=== PATIENT | female | born 1950 | race Caucasian/White ===

== ENCOUNTER → 2019-10-22 | Day surgery (SDC) | payer MEDICARE ==
[2019-10-22 12:41] VITALS: BP 129/84; PULSE 91; RESP 18; TEMP 98.3
--- NOTE | 2019-10-22 18:13 | MM ---
EXAMINATION TYPE: MG stereo VAD BX RT DATE OF EXAM: 10/22/2019 COMPARISON: Outside mammogram 10/14/2019 CLINICAL HISTORY: Abnormal mammogram, calcifications right breast TECHNIQUE: Stereotactic guided core biopsy of right breast. FINDINGS: The procedure of stereotactic guided core biopsy was explained to the patient. Benefits, a lternatives, and risks were discussed. An informed consent was then obtained. Timeout was performed. The shortness pathway for biopsy was chosen. Shortness pathway was lateral approach. Procedure was t argeted by radiology. Procedure was performed by radiology. A vacuum assisted biopsy device was used to obtain 6 core samples. The patient tolerated the procedure well without any immediate complication. The patient was kept in the radiology department for short stay after the procedure for postprocedure mammogram. Discharge instructions were discussed with the patient. The patient was discharged to home in stable conditio n. Patient tolerated procedure well. Specimen: Targeted calcifications are identified in specimen mammogram. Postprocedure mammogram: Post biopsy mammogram shows the clip to appear in satisfactory position rela tive to the targeted area of concern on the preprocedure images. IMPRESSION: 1. Successful stereotactic core biopsy right breast calcifications. Recommendations: 1. Recommendations are pending pathology.
== END ==
LOC: RADMAMWWP 12:03
PROVIDERS: ATTEND Family Medicine
DX: N60.11 Diffuse cystic mastopathy of right breast (principal); R92.0 Mammographic microcalcification found on diagnostic imaging of breast
CPT/HCPCS: 88305; 19081; A4648; J2001

== ENCOUNTER → 2020-04-27 | Outpatient (CLI) | payer MEDICARE ==
--- NOTE | 2020-04-27 13:45 | MM ---
Reason for exam: follow-up at short interval from prior study. Last mammogram was performed 7 months ago. History: Family history of breast cancer in sister at age 54. Benign MG stereo VAD BX RT of the right breast, October 22, 2019. Took hormonal contraceptives for 5 years beginning at age 21. Took estrogen for 5 years beginning at age 31. Physical Findings: Nurse did not find any significant physical abnormalities on exam. MG 3D Diag Mammo W/Cad RT CC and MLO view(s) were taken of the right breast. Prior study comparison: October 07, 2019, mammogram. The breast tissue is heterogeneously dense. This may lower the sensitivity of mammography. Finding: Architectural distortion in the right breast at clip. Previous mammotome biopsy in the right breast. There is no discrete abnormality. These results were verbally communicated with the patient and result sheet given to the patient on 04/27/20. ASSESSMENT: Benign, BI-RAD 2 RECOMMENDATION: Routine screening mammogram of both breasts in 6 months. Back on schedule for October 2020.
== END | disposition home or self-care (01) ==
LOC: RADMAMWWP 12:38
PROVIDERS: ATTEND Family Medicine
DX: R92.0 Mammographic microcalcification found on diagnostic imaging of breast (principal)
CPT/HCPCS: 77065; G0279; 77061

== ENCOUNTER → 2020-12-13 | Outpatient (CLI) | payer MEDICARE ==
--- NOTE | 2020-12-14 11:22 | MM ---
Reason for exam: screening (asymptomatic). Last mammogram was performed 7 months ago. History: Patient is postmenopausal. Family history of breast cancer in sister at age 54. Benign MG stereo VAD BX RT of the right breast, October 22, 2019. Took hormonal contraceptives for 5 years beginning at age 21. Took estrogen for 5 years beginning at age 31. Physical Findings: A clinical breast exam by your physician is recommended on an annual basis and results should be correlated with mammographic findings. MG 3D Screening Mammo W/Cad Bilateral CC and MLO view(s) were taken. Prior study comparison: April 27, 2020, right breast MG 3d diag mammo w/cad RT. October 07, 2019, mammogram. The breast tissue is heterogeneously dense. This may lower the sensitivity of mammography. There are benign appearing round calcifications in the left breast. Previous mammotome biopsy in the right breast. There is no discrete abnormality. ASSESSMENT: Negative, BI-RAD 1 RECOMMENDATION: Routine screening mammogram of both breasts in 1 year.
== END | disposition home or self-care (01) ==
LOC: RADMAMWWP 08:22
PROVIDERS: ATTEND Family Medicine
DX: Z12.31 Encounter for screening mammogram for malignant neoplasm of breast (principal)
CPT/HCPCS: 77063; 77067

== ENCOUNTER → 2022-01-02 | Outpatient (CLI) | payer MEDICARE ==
--- NOTE | 2022-01-05 12:28 | MM ---
Reason for exam: screening (asymptomatic). Last mammogram was performed 1 year and 1 month ago. History: Patient is postmenopausal. Family history of breast cancer in sister at age 54. Benign MG stereo VAD BX RT of the right breast, October 22, 2019. Took hormonal contraceptives for 5 years beginning at age 21. Took estrogen for 5 years beginning at age 31. Physical Findings: A clinical breast exam by your physician is recommended on an annual basis and results should be correlated with mammographic findings. MG 3D Screening Mammo W/Cad Bilateral CC and MLO view(s) were taken. Prior study comparison: December 13, 2020, bilateral MG 3d screening mammo w/cad. April 27, 2020, right breast MG 3d diag mammo w/cad RT. The breast tissue is heterogeneously dense. This may lower the sensitivity of mammography. Previous mammotome biopsy in the right breast. No significant changes when compared with prior studies. ASSESSMENT: Benign, BI-RAD 2 RECOMMENDATION: Routine screening mammogram of both breasts in 1 year.
== END | disposition home or self-care (01) ==
LOC: RADMAMWWP 16:08
PROVIDERS: ATTEND Family Medicine
DX: Z12.31 Encounter for screening mammogram for malignant neoplasm of breast (principal); Z78.0 Asymptomatic menopausal state; Z80.3 Family history of malignant neoplasm of breast
CPT/HCPCS: 77063; 77067

== ENCOUNTER → 2023-02-06 | Outpatient (CLI) | payer MEDICARE ==
--- NOTE | 2023-02-07 10:50 | MM ---
Reason for Exam: Screening (asymptomatic). Last mammogram was performed 1 year(s) and 2 month(s) ago. Patient History: Menarche at age 12. First Full-Term at age 29. Postmenopausal. Estrogen, starting at age 31 for 5 years. Hormonal Contraceptives, starting at age 21 for 5 years. 10/22/2019, Benign Core Biopsy on the right side. Sister had breast cancer, age 54. Risk Values: Gerri 5 year model risk: 4.4%. NCI Lifetime model risk: 11.9%. Prior Study Comparison: 04/27/2020 Right Diagnostic Mammogram, [facility]. 12/13/2020 Bilateral Screening Mammogram, [facility]. 01/02/2022 Bilateral Screening Mammogram, [facility]. Tissue Density: The breast tissue is heterogeneously dense. This may lower the sensitivity of mammography. Findings: Analyzed By CAD. There is occasional benign-appearing punctate calcification redemonstrated throughout the left breast. Mammotome biopsy clip in the right breast is redemonstrated. There is no suspicious new group of microcalcifications or new suspicious mass in either breast. Overall Assessment: Benign, BI-RAD 2 Management: Screening Mammogram of both breasts in 1 year. A clinical breast exam by your physician is recommended on an annual basis and results should be correlated with mammographic findings. Electronically signed and approved by: Bryce Sapp M.D.
== END | disposition home or self-care (01) ==
LOC: RADMAMWWP 10:11
PROVIDERS: ATTEND Family Medicine
DX: Z12.31 Encounter for screening mammogram for malignant neoplasm of breast (principal); Z78.0 Asymptomatic menopausal state; Z80.3 Family history of malignant neoplasm of breast
CPT/HCPCS: 77063; 77067

== ENCOUNTER → 2024-02-08 | Outpatient (CLI) | payer MEDICARE ==
--- NOTE | 2024-02-11 12:28 | MM ---
Reason for Exam: Screening (asymptomatic). Last screening mammogram was performed 12 month(s) ago. Patient History: Menarche at age 12. First Full-Term at age 29. Postmenopausal. Estrogen, starting at age 31 for 5 years. Hormonal Contraceptives, starting at age 21 for 5 years. 10/22/2019, Benign Core Biopsy on the right side. Sister had breast cancer, age 54. Risk Values: Gerri 5 year model risk: 4.5%. NCI Lifetime model risk: 11.3%. Prior Study Comparison: 12/13/2020 Bilateral Screening Mammogram, [facility]. 01/02/2022 Bilateral Screening Mammogram, [facility]. 02/06/2023 Bilateral MG 3D screening mammo w/cad, [facility]. Tissue Density: The breasts are heterogeneously dense, which may obscure small masses. Findings: Analyzed By CAD. There is no suspicious group of microcalcifications or new suspicious mass in either breast. Overall Assessment: Benign, BI-RAD 2 Management: Screening Mammogram of both breasts in 1 year. . Patient should continue monthly self-breast exams. A clinical breast exam by your physician is recommended on an annual basis. This exam should not preclude additional follow-up of suspicious palpable abnormalities. Note on Gerri scores and lifetime risk: 1. A Gerri score greater than 3% is considered moderate risk. If this is the case, consider specialist referral to assess eligibility for a risk reducing agent. 2. If overall lifetime risk for the development of breast cancer is 20% or higher, the patient may qualify for future screening with alternating mammogram and breast MRI. Electronically signed and approved by: Hao Harris M.D. Radiologis
== END | disposition home or self-care (01) ==
LOC: RADMAMWWP 10:07
PROVIDERS: ATTEND Family Medicine
DX: Z12.31 Encounter for screening mammogram for malignant neoplasm of breast (principal); Z80.3 Family history of malignant neoplasm of breast; Z78.0 Asymptomatic menopausal state
CPT/HCPCS: 77063; 77067

== ENCOUNTER → 2024-03-25 | Outpatient (CLI) | payer MEDICARE ==
--- NOTE | 2024-04-03 22:53 | BD ---
EXAMINATION TYPE: Axial Bone Density DATE OF EXAM: 03/25/2024 CLINICAL HISTORY: 73 years old Female. ICD-10 CODE: N95.1 MENOPAUSAL AND FEMALE CLIMACTERIC STATES Height: 62.2 in Weight: 159 lbs MEDICATIONS: Thyroid Medications: yes Which medication: Synthroid How Lon+ years EXAM MEASUREMENTS: Bone mineral densitometry was performed using the [employer] System. Bone mineral density as measured about the Lumbar spine is: ----- L1-L4(G/cm2): 1.077 T Score Values are as follows: ----- L1: -0.9 ----- L2: -1.6 ----- L3: -0.6 ----- L4: -0.5 ----- L1-L4: -0.9 Z Score Values are as follows: ----- L1: 0.5 ----- L2: -0.1 ----- L3: 0.8 ----- L4: 0.9 ----- L1-L4: 0.6 Bone mineral density baseline Bone mineral density about the R hip (g/cm2): 0.799 Bone mineral density about the L hip (g/cm2): 0.809 T Score values are as follows: -----R Neck: -1.6 -----L Neck: -2.1 -----R Total: -1.7 -----L Total: -1.6 Z Score values are as follows: -----R Neck: 0.1 -----L Neck: -0.4 -----R Total: -0.2 -----L Total: -0.2 Bone mineral density baseline FRAX%s: The graph provided illustrates a 12.8% chance for a major osteoporotic fx and a 2.9% chance f or the hips probability for fx in 10 years time. IMPRESSION: Osteopenia (T Score between -2.5 and -1). There is slightly increased risk of fracture and the patient may be considered for treatment. Re-Screen 2-5 years. NOTE: T-SCORE=SD OF THE YOUNG ADULT MEAN.
== END | disposition home or self-care (01) ==
LOC: RADBDWWP 10:49
PROVIDERS: ATTEND Family Medicine
DX: M85.89 Other specified disorders of bone density and structure, multiple sites (principal); N95.1 Menopausal and female climacteric states
CPT/HCPCS: 77080

== ENCOUNTER → 2025-03-24 | Outpatient (CLI) | payer MEDICARE ==
--- NOTE | 2025-03-24 12:05 | MM ---
Reason for Exam: Screening (asymptomatic). Last mammogram was performed 1 year(s) and 1 month(s) ago. Patient History: Menarche at age 12. First Full-Term at age 29. Postmenopausal. Patient has history of breast feeding. Estrogen, starting at age 31 for 5 years. Hormonal Contraceptives, starting at age 21 for 5 years. 10/22/2019, Benign Core Biopsy on the right side. Sister had breast cancer, age 54. Risk Values: Gerri 5 year model risk: 4.5%. NCI Lifetime model risk: 10.7%. Prior Study Comparison: 10/07/2019 Screening Mammogram, Unknown. 04/27/2020 Right Diagnostic Mammogram, [facility]. 12/13/2020 Bilateral Screening Mammogram, [facility]. 01/02/2022 Bilateral Screening Mammogram, [facility]. 02/06/2023 Bilateral MG 3D screening mammo w/cad, [facility]. 02/08/2024 Bilateral MG 3D screening mammo w/cad, [facility]. Tissue Density: The breasts are heterogeneously dense, which may obscure small masses. Findings: Analyzed By CAD. Right breast biopsy clip. Right breast: There is no suspicious group of microcalcifications or new suspicious mass. Left breast: There is no suspicious group of microcalcifications or new suspicious mass. Overall Assessment: Benign, BI-RAD 2 Management: Screening Mammogram of both breasts in [address] [facility] will attempt to contact patient to return for supplemental views and ultrasound if indicated. Patient should continue monthly self-breast exams. A clinical breast exam by your physician is recommended on an annual basis. This exam should not preclude additional follow-up of suspicious palpable abnormalities. Note on Gerri scores and lifetime risk: 1. A Gerri score greater than 3% is considered moderate risk. If this is the case, consider specialist referral to assess eligibility for a risk reducing agent. 2. If overall lifetime risk for the development of breast cancer is 20% or higher, the patient may qualify for future screening with alternating mammogram and breast MRI. [facility], , 03/24/2025 12:02 PM. Electronically signed and approved by: Dwight Walton DO
== END | disposition home or self-care (01) ==
LOC: RADMAMWWP 09:01
PROVIDERS: ATTEND Family Medicine
DX: Z12.31 Encounter for screening mammogram for malignant neoplasm of breast (principal); R92.333 Mammographic heterogeneous density, bilateral breasts; Z78.0 Asymptomatic menopausal state; Z92.0 Personal history of contraception; Z80.3 Family history of malignant neoplasm of breast
CPT/HCPCS: 77063; 77067